=== PATIENT | male | born 1950 | race Caucasian/White ===

== ENCOUNTER 2023-06-01 09:37 | Emergency (ER) | payer OTHER ==
[2023-06-01 10:09] LABS: BASOPHILS PERCENT AUTO 0.6 % (0.0-1.0); EOSINOPHILS ABSOLUTE AUTO 0.2 K/mm3 (0.0-0.4); EOSINOPHILS PERCENT AUTO 3.4 % (0.0-6.0); HEMATOCRIT 47.1 % (42.0-52.0); HEMOGLOBIN 16.5 gm/dl (14.0-18.0); IMMATURE GRAN ABSOLUTE AUTO 0.04 K/mm3 (0.00-0.05); IMMATURE GRAN PERCENT AUTO 0.6 % (0.0-0.4); LYMPHOCYTES ABSOLUTE AUTO 1.7 K/mm3 (1.0-4.8); LYMPHOCYTES PERCENT AUTO 24.8 % (24.0-44.0); MEAN CORPUSCULAR HEMOGLOBIN 30.3 pg (28.0-32.0); MEAN CORPUSCULAR VOLUME 86.4 fl (83.0-99.0); MEAN PLATELET VOLUME 9.1 fl (9.4-12.4); MONOCYTES ABSOLUTE AUTO 0.6 K/mm3 (0.0-0.8); MONOCYTES PERCENT AUTO 8.5 % (0.0-8.0); NEUTROPHILS ABSOLUTE AUTO 4.4 K/mm3 (1.8-7.7); NEUTROPHILS PERCENT AUTO 62.1 % (41.0-71.0); PLATELET COUNT,PLT 222 K/mm3 (150-400); RED BLOOD CELL COUNT 5.45 M/mm3 (4.52-5.90); WHITE BLOOD CELL COUNT,WBC 7.02 K/mm3 (3.9-11.3)
[2023-06-01] MEDS: Iopamidol 612 MG/ML 30 ML SDV IV ONE (10:17)
[2023-06-01] MEDS: Iopamidol 612 MG/ML 100 ML Bottle IVPUSH ONE (10:17)
[2023-06-01] MEDS: Sodium Chloride 0.9% 10 ML Syringe FLUSH PRN (10:17)
[2023-06-01 10:27] LABS: INR 0.96; PROTHROMBIN TIME 10.3 SECONDS (9.7-12.0)
[2023-06-01 10:30] LABS: A/G RATIO 1.3 (1-2); ALBUMIN 3.8 g/dl (3.4-5.0); ANION GAP 17.3 (5-15); BILIRUBIN TOTAL 0.6 mg/dL (0.2-1.0); BUN/CREATININE RATIO 16.9 (14-18); CREATININE 1.3 mg/dL (0.7-1.3); EST CRCL DRUG DOSING (CG) 52.12 mL/min; ETHANOL BLOOD MEDICAL 0.1 gm% (0.00); POTASSIUM,K 3.3 mEq/L (3.5-5.1); PROTEIN TOTAL,TP 6.7 g/dl (6.4-8.2)
== END 2023-06-01 13:35 | disposition home or self-care (01) ==
LOC: MERGE 09:37 → EDBD 09:37 → JD.ED 09:37
DX: S22.41XA Multiple fractures of ribs, right side, initial encounter for closed fracture (principal); W22.8XXA Striking against or struck by other objects, initial encounter
CPT/HCPCS: 36415; 71260; 72128; 72131; 74177; 80053; 80307; 82150; 83605; 85025; 85610; 86850; 86900; 86901; 99284; J3490; Q9967